=== PATIENT | female | born 1980 | race Two or more races ===

== ENCOUNTER 2022-03-27 09:51 | Emergency (ER) | payer MEDICAID, OTHER ==
[~2022-03-27] VITALS: Ht 162.6 cm; Wt 69.0 kg
[2022-03-27 11:54] VITALS: BP 132/57
[2022-03-27] MEDS ORDERED: cefTRIAXone SOD 1,000 MG VL IM ONE (13:15)
[2022-03-27] MEDS ORDERED: traMADol HCL 50 MG TAB PO ONE (13:30)
[2022-03-27] MEDS ORDERED: AMOX500T86 PO (13:54)
[2022-03-27] MEDS ORDERED: NEOMYCIN-BACITRACIN-POLYM UNITDOSE PKG TOP OINT TOP ONE (14:30)
== END 2022-03-27 14:34 | disposition home or self-care (01) ==
LOC: ER 09:51
DX: S51.851A Open bite of right forearm, initial encounter (principal); W54.0XXA Bitten by dog, initial encounter; Y93.89 Activity, other specified; Y92.89 Other specified places as the place of occurrence of the external cause; Y99.8 Other external cause status
CPT/HCPCS: 73090; 96372; 99283; J0696